=== PATIENT | male | born 1985 | race Caucasian/White ===

== ENCOUNTER 2016-07-02 13:23 | Emergency (ER) | payer SELFPAY ==
[~2016-07-02] VITALS: Ht 177.8 cm; Wt 72.5 kg
[~2016-07-02 13:23] MED LIST: CITA20 PO; PHEN100 PO; ZOFR4TAB3 SL
[2016-07-02 13:25] VITALS: BP 135/80; PULSE 106; RESP 14; TEMP 98.3; O2SAT 96
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
[2016-07-02 16:11] LABS: AUTOMATED NEUTROPHIL # 2.5 TH/MM3 (1.8-7.7); BASOPHIL # 0.1 TH/MM3 (0-0.2); BASOPHIL % 1.1 % (0.0-2.0); EOSINOPHIL # 0.1 TH/MM3 (0-0.4); EOSINOPHIL % 2.4 % (0.0-4.0); HEMATOCRIT 47.4 % (39.0-51.0); HEMO FLAGS DIFF FINAL; LYMPH % 45.1 % (9.0-44.0); LYMPHOCYTE # 2.8 TH/MM3 (1.0-4.8); MEAN CELL VOLUME 85.4 FL (80.0-100.0); MEAN CORPUSCULAR HEMOGLOBIN 29.3 PG (27.0-34.0); MEAN CORPUSCULAR HGB CONC 34.3 % (32.0-36.0); NEUT % 40.4 % (16.0-70.0); PLATELET COUNT 292 TH/MM3 (150-450); RED BLOOD COUNT 5.55 MIL/MM3 (4.50-5.90); RED CELL DISTRIBUTION WIDTH 13.2 % (11.6-17.2); WHITE BLOOD COUNT 6.3 TH/MM3 (4.0-11.0)
[2016-07-02 16:32] LABS: ANION GAP 4 MEQ/L (5-15); AST (GOT) 11 U/L (15-37); BICARBONATE 27.8 MEQ/L (21.0-32.0); BLOOD UREA NITROGEN 5 MG/DL (7-18); CHLORIDE 105 MEQ/L (98-107); GLOMERULAR FILTRATION RATE 105 ML/MIN (>89); POTASSIUM 4.2 MEQ/L (3.5-5.1); SODIUM (NA) 137 MEQ/L (136-145)
[2016-07-02 16:40] LABS: ALKALINE PHOSPHATASE 52 U/L (45-117); ALT (GPT) 29 U/L (12-78); TOTAL BILIRUBIN ADULT 0.5 MG/DL (0.2-1.0)
[2016-07-02 17:44] VITALS: BP 116/69; PULSE 93; RESP 16; O2SAT 97
[2016-07-02] MEDS ORDERED: DEPA500T3 PO (17:51)
[2016-07-02] MEDS ORDERED: BUSP15TA PO (17:52)
[2016-07-02] MEDS ORDERED: ZYPR5TAB PO (17:52)
[2016-07-02] MEDS ORDERED: ZOFR4TAB3 SL (17:59)
--- NOTE | 2016-07-02 17:59 | PD ---
Data Data Last Documented VS Vital Signs Date Time Temp Pulse Resp B/P Pulse Ox O2 Delivery O2 Flow Rate FiO2 07/02/16 17:44 93 16 116/69 97 Room Air 07/02/16 13:25 98.3 Orders Complete Blood Count With Diff (07/02/16 15:25) Comprehensive Metabolic Panel (07/02/16 15:25) Valproic Acid (Depakene) (07/02/16 15:25) Divalproex Er (Depakote Er) (07/02/16 18:00) Acetaminophen (Tylenol) (07/02/16 18:00) Labs Laboratory Tests Test 07/02/16 15:45 White Blood Count 6.3 TH/MM3 Red Blood Count 5.55 MIL/MM3 Hemoglobin 16.3 GM/DL Hematocrit 47.4 % Mean Corpuscular Volume 85.4 FL Mean Corpuscular Hemoglobin 29.3 PG Mean Corpuscular Hemoglobin 34.3 % Concent Red Cell Distribution Width 13.2 % Platelet Count 292 TH/MM3 Mean Platelet Volume 7.3 FL Neutrophils (%) (Auto) 40.4 % Lymphocytes (%) (Auto) 45.1 % Monocytes (%) (Auto) 11.0 % Eosinophils (%) (Auto) 2.4 % Basophils (%) (Auto) 1.1 % Neutrophils # (Auto) 2.5 TH/MM3 Lymphocytes # (Auto) 2.8 TH/MM3 Monocytes # (Auto) 0.7 TH/MM3 Eosinophils # (Auto) 0.1 TH/MM3 Basophils # (Auto) 0.1 TH/MM3 CBC Comment DIFF FINAL Differential Comment Sodium Level 137 MEQ/L Potassium Level 4.2 MEQ/L Chloride Level 105 MEQ/L Carbon Dioxide Level 27.8 MEQ/L Anion Gap 4 MEQ/L Blood Urea Nitrogen 5 MG/DL Creatinine 0.86 MG/DL Estimat Glomerular Filtration 105 ML/MIN Rate Random Glucose 85 MG/DL Calcium Level 9.0 MG/DL Total Bilirubin 0.5 MG/DL Aspartate Amino Transf 11 U/L (AST/SGOT) Alanine Aminotransferase 29 U/L (ALT/SGPT) Alkaline Phosphatase 52 U/L Total Protein 7.3 GM/DL Albumin 4.1 GM/DL Valproic Acid (Depakene) Level 37 MCG/ML MDM Supervised Visit with NAFISA: Yes Narrative Course Patient care assumed from Linda HADLEY. Patient was seen as part of provider in triage screening. Patient is 31 year old male presents with mild headache after recurrent seziure. Patient states he had some episodes of hematemesis last night and states now resolved. Denies a history of liver disease, hypovolemia or pre- syncopal symptoms. Patient nausea is now resolved. Patient states he often has headaches after seziures. Patient accompanied by parents. Patient appears well. PE reassuring: GENERAL: WD/WN in nad HEAD: Atraumatic. Normocephalic. GASTROINTESTINAL: Abdomen soft, non-tender, nondistended. Hepatic and splenic margins not palpable. NEUROLOGICAL: Awake and alert. CN2-12 grossly intact and non-focal. PSYCHIATRIC: Appropriate mood and affect; insight and judgment normal. Labs reassuring. Patient takes Depakote for seizures. Level slightly subtherapeutic. Given additional dose in ED. Otherwise he appears well. No indication for CT head at this time. H/H is WNL. Patient is stable for discharge. Discussed follow up with his neurologist and PCP. Diagnosis Primary Impression: Headache Additional Impressions: Hematemesis Seizure Referrals: Rachana Samayoa MD Additional Instruction: Department follow-up with her primary care physician, follow-up with a palm and back forger Danita at your discretion. Med/Other Pt SpecificInfo: Prescription(s) given Scripts Ondansetron Odt (Zofran Odt)4 Mg Tab4 Mg SL Q6HR PRN (Nausea/Vomiting) #30 TAB Ref 0 Prov:Pool Montgomery MD 07/02/16 Disposition: 01 DISCHARGE HOME Condition: Stable Pool Montgomery MD Jul 02, 2016 17:59
[2016-07-02] MEDS ORDERED: ACETAMINOPHEN 500 MG CPLT PO ONE (18:00)
[2016-07-02] MEDS ORDERED: DIVALPROEX SODIUM E.R. 500 MG TAB PO ONE (18:00)
== END 2016-07-02 18:26 | disposition home or self-care (01) ==
LOC: NEPE 13:23
DX: R51 Headache (principal); K92.0 Hematemesis; R56.9 Unspecified convulsions
CPT/HCPCS: 80053; 80164; 85025; 99284

== ENCOUNTER 2016-07-03 08:32 | Observation (INO) | payer SELFPAY ==
[~2016-07-03] VITALS: Ht 177.8 cm; Wt 75.0 kg
[2016-07-03] VITALS (8 sets, daily range): BP systolic 97–131; BP diastolic 50–87; PULSE 73–95; RESP 15–20; TEMP 97.7–98.6; O2SAT 95–98
[~2016-07-03 08:32] MED LIST changes: +BUSP15TA PO; -CITA20 PO; +DEPA500T3 PO; -PHEN100 PO; +ZYPR5TAB PO
[2016-07-03] MEDS ORDERED: LORazepam 2 MG/ML VIAL IV PUSH ONE (09:00)
[2016-07-03] MEDS ORDERED: SODIUM CHLOR 0.9% 1000 ML INJ 1,000 ML IV ONE (09:00)
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
--- NOTE | 2016-07-03 09:57 | RADRPT ---
EXAM DATE/TIME: 07/03/2016 09:31 [facility] COMPARISON: No previous studies available for comparison. INDICATIONS : Seizure. RADIATION DOSE: 56.35 CTDIvol (mGy) MEDICAL HISTORY : Seizures. SURGICAL HISTORY : None. ENCOUNTER: Initial ACUITY: 1 day PAIN SCALE: 5/10 LOCATION: cranial TECHNIQUE: Multiple contiguous axial images were obtained of the head. Using automated exposure control and adj ustment of the mA and/or kV according to patient size, radiation dose was kept as low as reasonably a chievable to obtain optimal diagnostic quality images. FINDINGS: CEREBRUM: The ventricles are normal for age. No evidence of midline shift, mass lesion, hemorrhage or acute in farction. No extra-axial fluid collections are seen. POSTERIOR FOSSA: The cerebellum and brainstem are intact. The 4th ventricle is midline. The cerebellopontine angle i s unremarkable. EXTRACRANIAL: The visualized portion of the orbits is intact. SKULL: The calvaria is intact. No evidence of skull fracture. CONCLUSION: Normal examination for a patient of this age. Aureliano Rollins MD on July 03, 2016 at 9:54 Board Certified Radiologist. This report was verified electronically.
[2016-07-03 10:37] LABS: AUTOMATED NEUTROPHIL # 2.9 TH/MM3 (1.8-7.7); BASOPHIL # 0.1 TH/MM3 (0-0.2); BASOPHIL % 1.1 % (0.0-2.0); EOSINOPHIL # 0.3 TH/MM3 (0-0.4); EOSINOPHIL % 3.9 % (0.0-4.0); HEMATOCRIT 48.7 % (39.0-51.0); HEMO FLAGS DIFF FINAL; LYMPH % 42.3 % (9.0-44.0); LYMPHOCYTE # 3.1 TH/MM3 (1.0-4.8); MEAN CELL VOLUME 86.6 FL (80.0-100.0); MEAN CORPUSCULAR HEMOGLOBIN 29.4 PG (27.0-34.0); NEUT % 39.7 % (16.0-70.0); PLATELET COUNT 313 TH/MM3 (150-450); RED BLOOD COUNT 5.63 MIL/MM3 (4.50-5.90); RED CELL DISTRIBUTION WIDTH 13.7 % (11.6-17.2); WHITE BLOOD COUNT 7.4 TH/MM3 (4.0-11.0)
[2016-07-03 10:58] LABS: ALKALINE PHOSPHATASE 54 U/L (45-117); ALT (GPT) 28 U/L (12-78); ANION GAP 9 MEQ/L (5-15); AST (GOT) 15 U/L (15-37); BICARBONATE 29.3 MEQ/L (21.0-32.0); BLOOD UREA NITROGEN 10 MG/DL (7-18); CHLORIDE 101 MEQ/L (98-107); GLOMERULAR FILTRATION RATE 88 ML/MIN (>89); SODIUM (NA) 139 MEQ/L (136-145); TOTAL BILIRUBIN ADULT 0.3 MG/DL (0.2-1.0)
[2016-07-03 10:59] LABS: POTASSIUM 3.7 MEQ/L (3.5-5.1)
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
[2016-07-03] MEDS ORDERED: levETIRAcetam 1000 MG INJ 100 ML IV ONE (11:30)
[2016-07-03] MEDS ORDERED: LORazepam 0.5 MG TAB PO PRN (11:45)
[2016-07-03] MEDS ORDERED: SODIUM CHLORIDE 0.9% FLUSH 5 ML FLUSH IVF PRN ×2 (11:45→17:45)
[2016-07-03] MEDS ORDERED: HALOPERIDOL 1 MG TAB PO PRN (11:45)
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
[2016-07-03] MEDS: busPIRone HCL 10 MG TAB PO SCH ×2 (14:50→21:50)
[2016-07-03 15:13] LABS: BLOOD, URINE NEG (NEG); GLUCOSE,URINE NEG (NEG); KETONE, URINE NEG (NEG); NITRITE,URINE NEG (NEG); PH, URINE 7.5 (5.0-8.5); URINE COLOR LIGHT-YELLOW (YELLW/STRAW)
[2016-07-03 15:14] LABS: COMMENT (UR) CULT NOT INDICATED; CULTURE IF INDICATED CULT NOT INDICATED
[2016-07-03 15:22] LABS: AMPHETAMINE, URINE NEG (NEG); BARBITURATES, URINE NEG (NEG); COCAINE, URINE NEG (NEG)
[2016-07-03] MEDS: NICOTINE 21 MG/24 HR PATCH TD SCH (17:05)
[2016-07-03] MEDS ORDERED: LORazepam 2 MG/ML VIAL IV PRN (17:45)
[2016-07-03] MEDS ORDERED: ACETAMINOPHEN 325 MG TAB PO PRN (17:45)
[2016-07-03] MEDS ORDERED: cloNIDine HCL 0.1 MG TAB PO PRN (17:45)
[2016-07-03] MEDS ORDERED: ONDANSETRON HCL 4 MG/2 ML VIAL IV PRN (17:45)
[2016-07-03] MEDS ORDERED: DOCUSATE SODIUM 50 MG/SENNA 8.6 MG TAB PO PRN (17:45)
[2016-07-03] MEDS ORDERED: ENOXAPARIN SODIUM 40 MG/0.4 ML SYRINGE SQ SCH (18:00)
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
[2016-07-03] MEDS ORDERED: HALOPERIDOL 5 MG TAB PO PRN (19:45)
[2016-07-03] MEDS ORDERED: REMOVE OLD NICODERM (NICOTINE) PATCH TD SCH (21:00)
[2016-07-03] MEDS ORDERED: SODIUM CHLORIDE 0.9% FLUSH 5 ML FLUSH IVF SCH (21:00)
[2016-07-03] MEDS ORDERED: OLANZapine 5 MG TAB PO SCH (21:00)
[2016-07-03] MEDS ORDERED: OLANZapine 10 MG TAB PO SCH (21:00)
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
[2016-07-03] MEDS: SODIUM CHLORIDE 0.9% FLUSH 5 ML FLUSH IVF SCH (21:49)
[2016-07-03] MEDS: levETIRAcetam 500 MG TAB PO SCH (21:49)
[2016-07-03 23:56] LABS: MAGNESIUM 2.2 MG/DL (1.5-2.5)
--- NOTE | 2016-07-04 05:19 | MG ---
cc: AYESHA FRY M.D. Lab No: Date: 07/04/2016 Age: Sex: M Race: EEG 17-153 NOTE 1 mg of Ativan given. Patient falls asleep. Too sleepy for hyperventilation. IDENTIFYING DATA A 31-year-old man with history of seizures for 9 years, psychiatric issues. MEDICATIONS 1. Ativan. 2. BuSpar. 3. Depakote. FINDINGS The recording shows diffuse alpha and beta waves. The recording is overall synchronous and symmetric. Some diffuse theta slowing is also noted. The patient appears to be clinically asleep and in fact has some K-complexes and reaches Stage II sleep with some vertex sharp waves. The recording overall is synchronous and symmetric. No epileptiform or seizure activity was noted. Photic stimulation is performed without significant posterior driving. IMPRESSION Normal Stage II sleep EEG. No evidence for a focal or diffuse abnormality. MD MINH Brandon/JENNA /11:51 PM /5:13 AM
[2016-07-04 06:41] LABS: AUTOMATED NEUTROPHIL # 2.6 TH/MM3 (1.8-7.7); BASOPHIL # 0.1 TH/MM3 (0-0.2); BASOPHIL % 1.1 % (0.0-2.0); EOSINOPHIL # 0.3 TH/MM3 (0-0.4); HEMATOCRIT 43.2 % (39.0-51.0); HEMO FLAGS DIFF FINAL; LYMPH % 46.9 % (9.0-44.0); LYMPHOCYTE # 3.2 TH/MM3 (1.0-4.8); MEAN CELL VOLUME 85.1 FL (80.0-100.0); MEAN CORPUSCULAR HEMOGLOBIN 30.4 PG (27.0-34.0); MEAN CORPUSCULAR HGB CONC 35.8 % (32.0-36.0); MONO % 9.5 % (0.0-8.0); NEUT % 38.5 % (16.0-70.0); PLATELET COUNT 271 TH/MM3 (150-450); RED BLOOD COUNT 5.08 MIL/MM3 (4.50-5.90); RED CELL DISTRIBUTION WIDTH 13.1 % (11.6-17.2); WHITE BLOOD COUNT 6.8 TH/MM3 (4.0-11.0)
[2016-07-04 06:45] LABS: ALKALINE PHOSPHATASE 46 U/L (45-117); ALT (GPT) 21 U/L (12-78); ANION GAP 8 MEQ/L (5-15); AST (GOT) 14 U/L (15-37); BICARBONATE 25.5 MEQ/L (21.0-32.0); BLOOD UREA NITROGEN 13 MG/DL (7-18); CHLORIDE 109 MEQ/L (98-107); GLOMERULAR FILTRATION RATE 116 ML/MIN (>89); POTASSIUM 3.8 MEQ/L (3.5-5.1); SODIUM (NA) 142 MEQ/L (136-145); TOTAL BILIRUBIN ADULT 0.3 MG/DL (0.2-1.0)
[2016-07-04 06:47] VITALS: BP 108/56; PULSE 58; RESP 18; O2SAT 97
[2016-07-04 08:00] VITALS: PULSE 67
[2016-07-04] MEDS: levETIRAcetam 500 MG TAB PO SCH (08:46)
[2016-07-04] MEDS: busPIRone HCL 10 MG TAB PO SCH (08:46)
[2016-07-04] MEDS: NICOTINE 21 MG/24 HR PATCH TD SCH (08:47)
[2016-07-04] MEDS: SODIUM CHLORIDE 0.9% FLUSH 5 ML FLUSH IVF SCH (08:47)
[2016-07-04] MEDS ORDERED: NICOTINE 21 MG/24 HR PATCH TD SCH (09:00)
[2016-07-04] MEDS ORDERED: DIVALPROEX SODIUM E.R. 500 MG TAB PO SCH ×2 (09:00)
[2016-07-04] MEDS ORDERED: LEVE500 PO (09:33)
--- NOTE | 2016-07-04 09:34 | HHI.DCPOC ---
Discharge Care Plan Diagnosis: (1) Bipolar disorder (2) Seizure (3) Anxiety Goals to Promote Your Health * To prevent worsening of your condition and complications * To maintain your health at the optimal level Directions to Meet Your Goals Take your medications as prescribed Follow your dietary instruction Follow activity as directed Keep your appointments as scheduled Take your immunizations and boosters as scheduled If your symptoms worsen call your PCP, if no PCP go to Urgent Care Center or Emergency Room Smoking is Dangerous to Your Health. Avoid second hand smoke Call the 24-hour hour crisis hotline for domestic abuse at Christiano Cooper MD R2 Jul 04, 2016 09:34
--- NOTE | 2016-07-04 10:31 | HHI.FPPN ---
Subjective Remarks No acute events overnight. AFVSS. Pt denies any new seizures overnight. Feels well. Feels comfortable with discharge today. (Tunde Lai MD R1) Objective Vitals Vital Signs Date Time Temp Pulse Resp B/P Pulse Ox O2 Delivery O2 Flow Rate FiO2 07/04/16 06:53 21 07/04/16 06:47 58 18 108/56 97 07/03/16 23:16 89 07/03/16 21:11 98.6 77 18 107/53 95 07/03/16 19:00 76 16 102/56 98 Room Air 07/03/16 18:00 90 20 122/58 98 Room Air 07/03/16 14:30 73 20 118/58 98 Room Air 07/03/16 13:15 97 21 07/03/16 12:00 77 15 97/50 95 Room Air I/O 07/03/16 07/03/16 07/03/16 07/04/16 07/04/16 07/04/16 07:00 15:00 23:00 07:00 15:00 23:00 Intake Total 600 ml Balance 600 ml Intake Oral 600 ml # Voids 3 (Tunde Lai MD R1) Result Diagram: 07/04/16 0602 07/04/16 0602 Imaging Last Impressions Head CT 07/03/16 0000 Signed Impressions: Service Date/Time: Sunday, July 03, 2016 09:31 - CONCLUSION: Normal examination for a patient of this age. Aureliano Rollins MD Objective Remarks GENERAL: This is a well-nourished, well-developed patient, in no apparent distress. SKIN: No rashes, ecchymoses or lesions. Multiple tattoos. Cool and dry. HEAD: Atraumatic. Normocephalic. No lacerations appreciated. EYES: Pupils equal round and reactive. Extraocular motions intact. No scleral icterus. No injection or drainage. ENT: Nose without bleeding, purulent drainage. MMM. Uvula midline. Airway patent. NECK: Trachea midline. Supple, nontender, no meningeal signs. CARDIOVASCULAR: Regular rate and rhythm without murmurs, gallops, or rubs. RESPIRATORY: Clear to auscultation bilaterally. Breath sounds equal bilaterally. No wheezes, rales, or rhonchi. GASTROINTESTINAL: Abdomen soft, non-tender, nondistended. No guarding. MUSCULOSKELETAL: Extremities without clubbing, cyanosis, or edema. No joint tenderness, effusion, or edema noted. No calf tenderness. NEUROLOGICAL: Awake and alert. Cranial nerves II through XII grossly intact. Motor and sensory grossly within normal limits. Normal speech. (Tunde Lai MD R1) A/P Assessment and Plan Patient is a 31-year-old male presenting with seizures refractory to monotherapy with Depakote. We will add Keppra and discharge per neurology recommendations. We'll continue psychiatric medications and discharge per psychiatry recommendations. Discharge Planning Discharge planning above. (Tunde Lai MD R1) Attending Attestation Pt. examined and case discussed with resident physicians I have read the above note and agree with the assessment/plan as discussed with me I was involved in all medical decision making for this patient Pieter Puckett MD (Pieter Puckett MD) Problem List: (1) Seizure Status: Acute Plan: Patient with increased frequency of seizures on current dose of Depakote. -Neurology has been consulted, appreciate recommendations -We will continue Depakote 500mg po BID and add Keppra 500 mg BID, per neurology 's recommendation -Seizure precautions -Neuro checks every 4 hours -EEG showed normal stage II sleep EEG. No evidence for a focal or diffuse abnormality. (2) Bipolar disorder Status: Acute Plan: -We'll continue home Zyprexa -Psychiatry consulted and recommend continuing home medications -Haldol added for agitation. (3) Anxiety Status: Acute Plan: -Psychiatry consulted for further recommendations - Continue home medications (4) FEN/PPX Status: Acute Plan: Fluids: None Electrolytes: Within normal limits, continue to monitor and replete as necessary Nutrition: Regular diet DVT Prophylaxis: Lovenox (Tunde Lai MD R1) Problem Qualifiers (1) Bipolar disorder: Tunde Lai MD R1 Jul 04, 2016 10:31 Pieter Puckett MD Jul 04, 2016 19:09
== END 2016-07-04 11:19 | disposition home or self-care (01) ==
LOC: NEPE 08:32 → NEDA 10:42 → NEDH 19:33 → NEPFCDU 20:48
PROVIDERS: ADMIT Family Medicine; ATTEND Family Medicine
DX: G40.409 Other generalized epilepsy and epileptic syndromes, not intractable, without status epilepticus (principal); F31.9 Bipolar disorder, unspecified; F41.9 Anxiety disorder, unspecified; Q86.0 Fetal alcohol syndrome (dysmorphic); F90.9 Attention-deficit hyperactivity disorder, unspecified type; F63.81 Intermittent explosive disorder; F70 Mild intellectual disabilities; F91.3 Oppositional defiant disorder; F60.9 Personality disorder, unspecified; R51 Headache; Z86.59 Personal history of other mental and behavioral disorders
CPT/HCPCS: 70450; 80053; 80164; 80307; 80320; 81001; 82607; 83605; 83735; 84100; 84425; 85025; 95819; 96361; 96374; 97163; 99285; G0378; G8987; G8988; J1650; J1953; J2060; J7030

== ENCOUNTER 2016-10-21 10:23 | Emergency (ER) | payer SELFPAY ==
[~2016-10-21 10:23] MED LIST changes: +LEVE500 PO
[2016-10-21 10:31] VITALS: BP 124/64; PULSE 78; RESP 14; TEMP 98.2; O2SAT 99
--- NOTE | 2016-10-21 11:20 | PD ---
HPI Chief Complaint: Medical Clearance Time Seen by Provider: 10:55 Travel History International Travel<30 days: No Contact w/Intl Traveler<30days: No Traveled to known affect area: No History of Present Illness HPI 31-year-old male with no significant past mental history presents to the emergency room with chief complaint of sore throat, nasal congestion, cough, headache x 3 days. He reports his symptoms are unrelieved by Mucinex over-the- counter. Patient reports that multiple people at his work have upper respiratory illnesses. He reports he was sent home from work and presents to the emergency room for work and evaluation. He denies fevers, chills, nausea or vomiting. PFSH Past Medical History Bipolar Disorder: Yes Anxiety: Yes Depression: Yes Psychiatric: Yes Schizophrenia: Yes (schizoaffective) Social History Alcohol Use: No Tobacco Use: Yes (half pack a day ) Substance Use: No Allergies-Medications (Allergen,Severity, Reaction): Coded Allergies: Tegretol (Verified Allergy, Severe, 07/03/16) Reported Meds & Prescriptions Reported Meds & Active Scripts Active Keppra (Levetiracetam) 500 Mg Tab 500 Mg PO Q12HR Zofran Odt (Ondansetron Odt) 4 Mg Tab 4 Mg SL Q6HR PRN Reported Zyprexa (Olanzapine) 5 Mg Tab 5 Mg PO BID Buspirone (Buspirone HCl) 15 Mg Tab 15 Mg PO BID Depakote ER (Divalproex Sodium) 500 Mg [place] 1,000 Mg PO DAILY Review of Systems Except as stated in HPI: all other systems reviewed are Neg Physical Exam Narrative GENERAL: Well-nourished well-appearing white male SKIN: Warm and dry. No rash. HEAD: Atraumatic. Normocephalic. No sinus tenderness. EYES: Pupils equal and round. No scleral icterus. No injection or drainage. ENT: No nasal bleeding. Nasal congestion. Mucous membranes pink and moist. Posterior pharynx erythema without exudate. No tonsillar swelling. NECK: Trachea midline. No JVD. CARDIOVASCULAR: Regular rate and rhythm. RESPIRATORY: No accessory muscle use. Clear to auscultation. Breath sounds equal bilaterally. No wheezing or rhonchi. GASTROINTESTINAL: Abdomen soft, non-tender, nondistended. Hepatic and splenic margins not palpable. MUSCULOSKELETAL: Extremities without clubbing, cyanosis, or edema. No obvious deformities. NEUROLOGICAL: Awake and alert. No obvious cranial nerve deficits. Motor grossly within normal limits. Five out of 5 muscle strength in the arms and legs. Normal speech. PSYCHIATRIC: Appropriate mood and affect; insight and judgment normal. Data Data Last Documented VS Vital Signs Date Time Temp Pulse Resp B/P Pulse Ox O2 Delivery O2 Flow Rate FiO2 10/21/16 10:31 98.2 78 14 124/64 99 MDM Medical Decision Making Medical Screen Exam Complete: Yes Emergency Medical Condition: No Differential Diagnosis URI versus bronchitis versus pharyngitis Narrative Course 31-year-old male presents emergency department with three-day history of nasal congestion, sore throat, headache, cough. He denies fevers, chills, nausea, vomiting, abdominal pain, shortness of breath. He is well-appearing and nontoxic. His history and physical exam are consistent with viral upper respiratory infection. Supportive care follow up with her primary doctor. Patient is in agreement to this plan. Diagnosis Primary Impression: URI (upper respiratory infection) Qualified Code: J06.9 - Viral upper respiratory tract infection Referrals: Primary Care Physician Patient Instructions: General Instructions Departure Forms: Tests/Procedures, Work Release Enter return to work date: October 23, 2016 Disposition: 01 DISCHARGE HOME Condition: Stable Heather Solares October 21, 2016 11:20
== END 2016-10-21 11:28 | disposition home or self-care (01) ==
LOC: NEPK 10:23
DX: J06.9 Acute upper respiratory infection, unspecified (principal); F17.210 Nicotine dependence, cigarettes, uncomplicated
CPT/HCPCS: 99281